=== PATIENT | female | born 1965 | race Caucasian/White ===

== ENCOUNTER 2024-02-05 21:18 | Inpatient (IN) | payer OTHER ==
[2024-02-05 21:59] VITALS: BMI 30.2
[2024-02-05] MEDS ORDERED: BISMUTH SUBSALICYLATE 524 MG/30 ML PO PRN (22:23)
[2024-02-05] MEDS ORDERED: DICYCLOMINE HCL 10 MG CAPSULE PO PRN (22:23)
[2024-02-05] MEDS ORDERED: BENZOCAINE/MENTHOL (CHLORASEPTIC ) LOZENGE MM PRN (22:23)
[2024-02-05] MEDS ORDERED: POLYETHYLENE GLYCOL (HEALTHYLAX) 3350 17 GM PACKET PO PRN (22:23)
[2024-02-05] MEDS ORDERED: IBUPROFEN 400 MG TABLET (FP) PO PRN (22:23)
[2024-02-05] MEDS ORDERED: MAGNESIUM HYDROX 2400MG/30ML ORAL SUSPENSION 30 ML CUP PO PRN (22:23)
[2024-02-05] MEDS ORDERED: ONDANSETRON *ODT* 4 MG TABLET SL PRN (22:23)
[2024-02-05] MEDS ORDERED: NALOXONE HCL 0.4 MG/ML VIAL IM PRN (22:23)
[2024-02-05] MEDS ORDERED: MAG HYDROX/AL HYDROX/SIMETH 30 ML UNIT-DOSE CUP PO PRN (22:23)
[2024-02-05] MEDS ORDERED: NALOXONE (NARCAN) HCL 4 MG/0.1 ML SPRAY NS PRN (22:23)
[2024-02-05] MEDS ORDERED: guaiFENesin 600 MG TABLET.ER (FP) PO PRN (22:23)
[2024-02-05] MEDS ORDERED: LOPERAMIDE HCL 2 MG CAPSULE PO PRN (22:23)
[2024-02-05] MEDS ORDERED: BENZONATATE 200 MG CAPSULE PO PRN (22:23)
[2024-02-05] MEDS ORDERED: P-EPHED 60MG/TRIPROLIDI 2.5MG TABLET PO PRN (22:23)
[2024-02-05] MEDS: hydrOXYzine PAMOATE 25 MG CAPSULE (FP) PO PRN (23:58)
[2024-02-05] MEDS: METHOCARBAMOL 500 MG TABLET PO PRN (23:58)
[2024-02-05] MEDS: IBUPROFEN 600 MG TABLET (FP) PO PRN (23:59)
[2024-02-06] MEDS: PRENATAL VITAMINS W/ FOLIC ACID TABLET (FP) PO SCH (10:16)
[2024-02-06 11:45] LABS: HEMATOCRIT 41.8 % (32.4-45.2); HEMOGLOBIN 13.9 GM/dL (10.7-15.3); MCH 30.4 pg (25.7-33.7); MCHC 33.2 g/dl (32.0-36.0); MEAN CELL VOLUME 91.6 fl (80-96); PLATELET COUNT 192 10^3/uL (134-434); RBC 4.56 M/mm3 (3.60-5.2); RDW 15.1 % (11.6-15.6); WHITE BLOOD COUNT 5.3 K/mm3 (4.0-10.0)
[2024-02-06 11:53] LABS: POTASSIUM 4.1 mmol/L (3.5-5.1)
[2024-02-06 12:00] LABS: CALCIUM 9.3 mg/dL (8.5-10.1)
[2024-02-06 12:01] LABS: ALBUMIN 3.4 g/dl (3.4-5.0); BLOOD UREA NITROGEN 23.7 mg/dL (7-18)
[2024-02-06 12:06] LABS: BILIRUBIN,TOTAL 1.1 mg/dL (0.2-1)
[2024-02-06] MEDS: methaDONE HCL 10 MG TABLET (FOR DETOX USE ONLY) PO ONE (12:08)
[2024-02-06] MEDS: cloNIDine HCL 0.1 MG TABLET PO PRN (15:02)
[2024-02-06] MEDS: MELATONIN 5 MG TABLETS PO SCH (22:14)
[2024-02-06] MEDS: THIAMINE 100 MG TABLET PO SCH (22:14)
[2024-02-07] MEDS: clonazePAM 0.5 MG ODT TABLETS SL PRN (16:03)
[2024-02-07] MEDS: MELATONIN 5 MG TABLETS PO SCH (21:53)
[2024-02-07] MEDS: PRAZOSIN HCL 1 MG CAPSULE PO SCH (21:53)
[2024-02-07] MEDS: APIXABAN 5 MG TABLET PO SCH (23:52)
[2024-02-07] MEDS: GABAPENTIN 400 MG CAPSULE PO SCH (23:52)
[2024-02-07] MEDS: SACUBITRIL/VALSARTAN 24 MG-26 MG TABLET PO SCH (23:52)
[2024-02-08] MEDS: methaDONE HCL 10 MG TABLET (FOR DETOX USE ONLY) PO ONE (09:58)
[2024-02-08] MEDS: DAPAGLIFLOZIN PROPANEDIOL 10 MG TABLET PO SCH (11:47)
[2024-02-08] MEDS: ACETAMINOPHEN 325 MG TABLET (FP) PO PRN (19:03)
[2024-02-08] MEDS: ATORVASTATIN CA 40 MG TABLET (FP) PO SCH (22:29)
[2024-02-09] MEDS: SPIRONOLACTONE 25 MG TABLET PO SCH (19:11)
[2024-02-10] MEDS: methaDONE HCL 10 MG TABLET (FOR DETOX USE ONLY) PO ONE (09:12)
[2024-02-11 10:09] VITALS: BP 146/89; PULSE 58; RESP 18; TEMP 97.3
== END 2024-02-11 10:31 | disposition home or self-care (01) | DRG 773 ==
LOC: YASAS 21:18 → Y3N 22:30
PROVIDERS: ADMIT Allergy & Immunology; ATTEND Surgery
PROC: HZ2ZZZZ Detoxification Services for Substance Abuse Treatment (ICD-10-PCS; principal; 2024-02-05)
DX: F11.23 Opioid dependence with withdrawal (principal); F10.10 Alcohol abuse, uncomplicated; F13.10 Sedative, hypnotic or anxiolytic abuse, uncomplicated; F41.9 Anxiety disorder, unspecified; F43.10 Post-traumatic stress disorder, unspecified; I48.0 Paroxysmal atrial fibrillation; M19.90 Unspecified osteoarthritis, unspecified site; Z86.718 Personal history of other venous thrombosis and embolism; Z79.01 Long term (current) use of anticoagulants; Z99.89 Dependence on other enabling machines and devices
CPT/HCPCS: 36415; 80053; 80305; 80307; 82962; 85027; 86780; 93005; 93010